=== PATIENT | female | born 1995 | race African-American/Black ===

== ENCOUNTER 2018-02-07 13:39 | Emergency (ER) | payer MEDICAID, OTHER ==
[~2018-02-07] VITALS: Ht 162.6 cm; Wt 58.0 kg
[2018-02-07 15:01] LABS: CLARITY URINE CLOUDY (CLEAR); COLOR URINE YELLOW (YELLOW); KETONES URINE TRACE (NEGATIVE); LEUKOCYTE ESTERASE URINE NEGATIVE (NEGATIVE); NITRITE URINE POSITIVE (NEGATIVE); OCCULT BLOOD URINE NEGATIVE (NEGATIVE); PH URINE 6.5 (4.5-8.0); PROTEIN URINE NEGATIVE (NEGATIVE); SPECIFIC GRAVITY URINE 1.031 (1.005-1.030)
[2018-02-07 15:18] LABS: BASOPHILS % 0.6 % (0.0-2.0); EOSINOPHILS % 1.9 % (0.0-5.0); HEMATOCRIT. 30.4 % (36.0-48.0); HEMOGLOBIN. 10.3 g/dL (12.0-16.0); LYMPHOCYTES % 32.2 % (20.0-50.0); MEAN CORPUSCULAR HEMOGLOBIN 26.3 pg (28.0-32.0); MEAN CORPUSCULAR VOLUME 77.8 fL (81.0-99.0); MEAN PLATELET VOLUME 7.4 fl (7.4-10.4); MONOCYTES % 9.8 % (2.0-8.0); NEUTROPHILS % 55.5 % (40.0-76.0); PLATELET 383 x1000/uL (130-400); RED BLOOD CELL COUNT 3.91 mill/uL (4.2-5.4); RED CELL DISTRIBUTION WIDTH 15.3 % (11.6-14.6)
[2018-02-07 15:20] LABS: CHLORIDE 108 mEq/L (98-107)
[2018-02-07 18:45] VITALS: BP 112/70
== END 2018-02-07 18:56 | disposition home or self-care (01) ==
LOC: ER 13:39
DX: O20.0 Threatened abortion (principal); O23.41 Unspecified infection of urinary tract in pregnancy, first trimester; O21.9 Vomiting of pregnancy, unspecified; O99.011 Anemia complicating pregnancy, first trimester; D64.9 Anemia, unspecified; O26.891 Other specified pregnancy related conditions, first trimester; R10.30 Lower abdominal pain, unspecified; K59.00 Constipation, unspecified; R53.1 Weakness; Z3A.11 11 weeks gestation of pregnancy; Z91.018 Allergy to other foods
CPT/HCPCS: 36415; 76801; 80053; 81003; 81025; 84702; 85025; 99284

== ENCOUNTER 2021-06-15 20:25 | Emergency (ER) | payer SELFPAY | END 2021-06-15 22:59 | disposition left against medical advice (07) | LOC: ER 22:53 | DX: Z53.21 Procedure and treatment not carried out due to patient leaving prior to being seen by health care provider (principal) ==

== ENCOUNTER 2022-06-01 03:58 | Emergency (ER) | payer MEDICAID ==
[~2022-06-01] VITALS: Ht 162.6 cm; Wt 59.0 kg
[2022-06-01] MEDS ORDERED: KETOROLAC 30MG/ML VIAL IV STA (05:48)
[2022-06-01] MEDS ORDERED: ONDANSETRON HCL 4MG/2ML INJ IV STA (05:48)
[2022-06-01] MEDS ORDERED: MORPHINE SULFATE 4 MG/ML CPJ (NOT FOR IM USE) IV STA (05:48)
[2022-06-01] MEDS ORDERED: PIPERACILLIN/TAZ 3.375G PREMIX 50 ML IV NR (06:00)
[2022-06-01] MEDS ORDERED: PIPERACILLIN/TAZOBACTAM 3.375GM/50ML PREMIX IV ONE (06:00)
[2022-06-01] MEDS ORDERED: SODIUM CHLORIDE 0.9% 1,000 ML IV ONE (06:00)
[2022-06-01 06:28] LABS: BASOPHILS % 0.3 % (0.0-2.0); EOSINOPHILS % 0.2 % (0.0-5.0); HEMATOCRIT. 42.2 % (36.0-48.0); HEMOGLOBIN. 13.1 g/dL (12.0-16.0); LYMPHOCYTES % 9.9 % (20.0-50.0); MEAN CORPUSCULAR HEMOGLOBIN 26.3 pg (28.0-32.0); MEAN CORPUSCULAR VOLUME 84.5 fL (81.0-99.0); MEAN PLATELET VOLUME 7.3 fl (7.4-10.4); MONOCYTES % 10.8 % (2.0-8.0); NEUTROPHILS % 78.8 % (40.0-76.0); PLATELET 328 x1000/uL (130-400); RED CELL DISTRIBUTION WIDTH 15.3 % (11.6-14.6)
[2022-06-01] MEDS ORDERED: DEXAMETHASONE 10 MG/ML VIAL IV ONE (06:30)
[2022-06-01 06:35] LABS: CHLORIDE 99 mEq/L (98-107)
[2022-06-01 06:40] LABS: ETHANOL BLOOD < 10 mg/dL
[2022-06-01 07:06] LABS: HCG SCREEN NEGATIVE
[2022-06-01] MEDS ORDERED: IBUP-2028 MT (09:54)
[2022-06-01] MEDS ORDERED: CLIN-194 MT (09:54)
[2022-06-01 10:45] VITALS: BP 109/67
== END 2022-06-01 10:02 | disposition home or self-care (01) ==
LOC: ER 03:58
DX: J02.9 Acute pharyngitis, unspecified (principal); S09.90XA Unspecified injury of head, initial encounter; F41.9 Anxiety disorder, unspecified; Z91.018 Allergy to other foods; Y04.0XXA Assault by unarmed brawl or fight, initial encounter; Y93.89 Activity, other specified; Y92.89 Other specified places as the place of occurrence of the external cause; Y99.8 Other external cause status
CPT/HCPCS: 36415; 70450; 70490; 71045; 80053; 80320; 84703; 85025; 87040; 87430; 96365; 96375; 99285; J1100; J1885; J2270; J2405; J2543; J7030; G0480